=== PATIENT | female | born 1990 ===

== ENCOUNTER 2020-07-22 12:02 | Inpatient (IN) | payer MEDICAID ==
[~2020-07-22] VITALS: Ht 160 cm; Wt 44.9 kg
[2020-07-22] MEDS ORDERED: HALOPERIDOL LACTATE 5 MG/ML VIAL IM ONE (12:30)
[2020-07-22] MEDS ORDERED: DiphenhydrAMINE HCL 50 MG/ML VIAL IM ONE (12:30)
[2020-07-22] MEDS ORDERED: LORazepam 2 MG/ML VIAL IM ONE (12:30)
[2020-07-22 14:54] LABS: BASOPHILS % (AUTO) 0.8 % (0.0-2.0); EOSINOPHILS % (AUTO) 1.7 % (1.0-6.0); HEMOGLOBIN 14.5 g/dL (12.0-16.0); LYMPHOCYTES % (AUTO) 39.3 % (22.0-44.0); MEAN CORPUSCULAR HEMOGLOBIN 31.5 pg (26.0-34.0); MEAN CORPUSCULAR HGB CONC 33.7 G/dL (31.0-37.0); MEAN CORPUSCULAR VOLUME 94 fL (80-100); MONOCYTES # (AUTO) 0.5 K/uL (0.1-1.0); MONOCYTES % (AUTO) 6.3 % (2.0-9.0); NEUTROPHILS % (AUTO) 51.9 % (40.0-70.0); PLATELET COUNT (AUTO) 237 K/uL (150-450); RED CELL DISTRIBUTION WIDTH 13.8 % (11.5-14.5)
[2020-07-22 15:04] LABS: ANION GAP 11 mmol/L (8-16); CALCIUM, TOTAL 8.9 mg/dL (8.8-10.5); CARBON DIOXIDE 25 mmol/L (22-29); CHLORIDE 107 mmol/L (98-107); CREATININE 0.61 mg/dL (0.60-1.30); GLOMERULAR FILTR. RATE CALC > 60 mL/min (>60); GLUCOSE,RANDOM 79 mg/dL (70-110); POTASSIUM 3.7 mmol/L (3.5-5.1); SODIUM SERUM 143 mmol/L (136-145); UREA NITROGEN, BLOOD 12 mg/dL (7-18)
[2020-07-22 15:15] LABS: ALANINE AMINOTRANSFERASE 17 U/L (12-78); ALBUMIN 3.8 g/dL (3.4-5.0); ALKALINE PHOSPHATASE 79 U/L (46-116); ASPARTATE AMINOTRANSFERASE 17 U/L (15-37); BILIRUBIN,TOTAL 0.5 mg/dL (0.1-1.0); HCG,QUANTITATIVE < 1 mIU/mL (0-6)
[2020-07-22 15:42] LABS: COVID AG,FIA SOURCE NASOPHARYNGEAL
[2020-07-22 20:14] VITALS: BP 92/60
[2020-07-23 00:11] VITALS: BP 100/61
[2020-07-23] MEDS ORDERED: INFLUENZA VIRUS VACCINE QVS 2020-21 (6MO+)/PF 60 MCG/0.5 ML SYRINGE IM ONE (00:15)
[2020-07-23] MEDS: RisperiDONE 1 MG TABLET PO SCH ×2 (09:28→20:49)
[2020-07-23] MEDS: LORazepam 2 MG TABLET PO PRN (09:28)
[2020-07-23 16:11] VITALS: BP 118/69
[2020-07-24 00:31] VITALS: BP 104/72
[2020-07-24] MEDS: LORazepam 2 MG TABLET PO PRN ×2 (08:00→16:29)
[2020-07-24] MEDS: RisperiDONE 1 MG TABLET PO SCH ×2 (08:01→20:08)
[2020-07-24 08:10] LABS: FREE T4 (FREE THYROXINE) 1.45 ng/dL (0.76-1.46); THYROID STIMULATING HORMONE 0.14 uIU/mL (0.36-3.74)
[2020-07-24 08:26] VITALS: BP 134/86
[2020-07-24 16:12] VITALS: BP 109/63
[2020-07-24] MEDS: HALOPERIDOL 5 MG TABLET PO PRN (16:27)
[2020-07-25 00:48] VITALS: BP 102/69
[2020-07-25 08:12] VITALS: BP 112/51
[2020-07-25] MEDS: LORazepam 2 MG TABLET PO PRN (08:41)
[2020-07-25] MEDS: RisperiDONE 1 MG TABLET PO SCH ×2 (08:41→20:49)
[2020-07-25] MEDS: HALOPERIDOL 5 MG TABLET PO PRN (09:18)
[2020-07-25 18:22] VITALS: BP 99/65
[2020-07-26 00:10] VITALS: BP 102/71
[2020-07-26] MEDS: HALOPERIDOL 5 MG TABLET PO PRN ×2 (07:07→12:59)
[2020-07-26] MEDS: LORazepam 2 MG TABLET PO PRN ×2 (07:07→12:59)
[2020-07-26] MEDS: RisperiDONE 1 MG TABLET PO SCH ×2 (07:58→22:07)
[2020-07-26 08:16] VITALS: BP 100/56
[2020-07-26 10:00] VITALS: BP 112/72
[2020-07-26] MEDS ORDERED: PALIPERIDONE PALMITATE 234 MG/1.5 ML SYRINGE IM ONE (16:00)
[2020-07-26 16:08] VITALS: BP 102/62
[2020-07-26] MEDS: ZOLPIDEM TARTRATE 10 MG TABLET PO PRN (20:15)
[2020-07-27 01:14] VITALS: BP 100/76
[2020-07-27] MEDS: MULTIVITAMINS WITH MINERALS, THERAPEUTIC TABLET PO SCH (08:40)
[2020-07-27] MEDS: RisperiDONE 1 MG TABLET PO SCH ×2 (08:40→20:21)
[2020-07-27] MEDS: THIAMINE 100 MG TABLET PO SCH (08:40)
[2020-07-27 08:42] VITALS: BP 105/70
[2020-07-27] MEDS: HALOPERIDOL 5 MG TABLET PO PRN (08:42)
[2020-07-27] MEDS: NICOTINE 14 MG/24 HOUR PATCH TD SCH (08:42)
[2020-07-27] MEDS: LORazepam 2 MG TABLET PO PRN (13:41)
[2020-07-27 16:26] VITALS: BP 110/70
[2020-07-28 00:15] VITALS: BP 110/72
[2020-07-28 08:08] VITALS: BP 109/70
[2020-07-28] MEDS: LORazepam 2 MG TABLET PO PRN ×3 (08:24→20:02)
[2020-07-28] MEDS: MULTIVITAMINS WITH MINERALS, THERAPEUTIC TABLET PO SCH (08:24)
[2020-07-28] MEDS: THIAMINE 100 MG TABLET PO SCH (08:24)
[2020-07-28] MEDS: RisperiDONE 1 MG TABLET PO SCH ×2 (08:24→20:02)
[2020-07-28] MEDS: NICOTINE 14 MG/24 HOUR PATCH TD SCH (09:24)
[2020-07-28 16:12] VITALS: BP 104/57
[2020-07-28] MEDS: ZOLPIDEM TARTRATE 10 MG TABLET PO PRN (22:00)
[2020-07-29 06:19] VITALS: BP 118/72
[2020-07-29] MEDS: LORazepam 2 MG TABLET PO PRN ×3 (06:56→16:50)
[2020-07-29] MEDS: RisperiDONE 1 MG TABLET PO SCH ×2 (09:20→20:26)
[2020-07-29] MEDS: MULTIVITAMINS WITH MINERALS, THERAPEUTIC TABLET PO SCH (09:21)
[2020-07-29] MEDS: NICOTINE 14 MG/24 HOUR PATCH TD SCH (09:21)
[2020-07-29] MEDS: THIAMINE 100 MG TABLET PO SCH (09:21)
[2020-07-29 09:59] VITALS: BP 109/64
[2020-07-29 16:07] VITALS: BP 102/64
[2020-07-29] MEDS ORDERED: MAG HYDROX/AL HYDROX/SIMETH 30 ML SUSP UDCUP PO PRN (18:15)
[2020-07-29] MEDS: ZOLPIDEM TARTRATE 10 MG TABLET PO PRN (20:30)
[2020-07-30 04:06] VITALS: BP 108/66
[2020-07-30] MEDS: RisperiDONE 1 MG TABLET PO SCH (07:57)
[2020-07-30] MEDS: THIAMINE 100 MG TABLET PO SCH (07:57)
[2020-07-30] MEDS: NICOTINE 14 MG/24 HOUR PATCH TD SCH (07:57)
[2020-07-30] MEDS: MULTIVITAMINS WITH MINERALS, THERAPEUTIC TABLET PO SCH (07:57)
[2020-07-30 08:17] VITALS: BP 106/73
[2020-07-30] MEDS ORDERED: PALI234D IM (08:17)
[2020-07-30] MEDS ORDERED: RISP1TAB89 PO (08:17)
[2020-07-30] MEDS ORDERED: PALIPERIDONE PALMITATE 156 MG/ML SYRINGE IM ONE (09:00)
== END 2020-07-30 11:45 | disposition home or self-care (01) | DRG 750 ==
LOC: EMS 12:02 → B3A 16:41 → UNDOADMIN 18:21 → B3A 19:15
PROVIDERS: ADMIT Psychiatry & Neurology Psychiatry; ATTEND Psychiatry & Neurology Psychiatry
DX: F25.0 Schizoaffective disorder, bipolar type (principal); R45.851 Suicidal ideations; E46 Unspecified protein-calorie malnutrition; Z20.822 Contact with and (suspected) exposure to COVID-19; F12.90 Cannabis use, unspecified, uncomplicated; F22 Delusional disorders; R00.0 Tachycardia, unspecified; Z68.1 Body mass index [BMI] 19.9 or less, adult; Z79.899 Other long term (current) drug therapy; Z91.013 Allergy to seafood; Z59.0 Homelessness
CPT/HCPCS: 80053; 80061; 84439; 84443; 84702; 85025; 99291; G0480; J1200; J1630; J2060